=== PATIENT | male | born 1995 | race Hispanic/Latino ===

== ENCOUNTER 2019-09-10 11:06 | Emergency (ER) | payer SELFPAY ==
--- NOTE | 2019-09-10 13:32 | RAD ---
XR Foot Lt 3 View STANDARD History: Lateral foot pain Comparison: None. Findings: No acute osseous fracture or malalignment. The fifth metatarsal tuberosity is intact. Lisfr anc interval is maintained. Impression: No acute osseous abnormality. 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
[2019-09-10] MEDS ORDERED: Ketorolac Tromethamine 30 MG/ML VIAL ONE (13:45)
== END 2019-09-10 14:30 | disposition home or self-care (01) ==
LOC: ERS 11:06
DX: M79.672 Pain in left foot (principal); M79.671 Pain in right foot; I10 Essential (primary) hypertension
CPT/HCPCS: 96372; J1885